=== PATIENT | male | born 1990 | race African-American/Black ===

== ENCOUNTER 2019-03-17 22:00 | Emergency (ER) | payer OTHER ==
[~2019-03-17] VITALS: Ht 175.3 cm; Wt 68.0 kg
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
[2019-03-17] MEDS ORDERED: HYDROCODONE/APAP 5/325MG 1 EACH TABLET PO ONE (22:30)
[2019-03-17] MEDS ORDERED: HYDROCODONE/APAP 5/325MG 1 EACH TABLET ONE (22:30)
[2019-03-17] MEDS ORDERED: OLANZAPINE 5 MG TABLET PO ONE (22:30)
[2019-03-17 22:40] LABS: BASOPHILS % (AUTO) 0.5 % (0.0-2.0); EOSINOPHILS % (AUTO) 1.5 % (0.0-6.0); HEMATOCRIT 42 % (39-51); HEMOGLOBIN 14.2 g/dL (13.5-17.5); LYMPHOCYTES % (AUTO) 21.6 % (20.0-44.0); MEAN CORPUSCULAR HGB CONC 34 g/dl (31.0-36.0); MEAN CORPUSCULAR VOLUME 90 fL (80-96); MONOCYTES # (AUTO) 0.4 /CMM (0.1-1.30); MONOCYTES % (AUTO) 4.1 % (2.0-12.0); NEUTROPHILS # (AUTO) 6.7 /CMM (1.8-8.9); NEUTROPHILS % (AUTO) 72.3 % (43.0-81.0); PLATELET COUNT (AUTO) 229 /CMM (150-450); WHITE BLOOD COUNT (AUTO) 9.2 K/uL (4.3-11.0)
[2019-03-17] MEDS ORDERED: OLANZAPINE 5 MG TABLET ONE (22:52)
[2019-03-17 22:53] LABS: CALCIUM, SERUM 8.2 mg/dL (8.5-10.1); CREATININE 0.9 mg/dL (0.6-1.3); POTASSIUM 3.7 mmol/L (3.5-5.1)
[2019-03-17 22:58] LABS: ALBUMIN 3.6 g/dL (3.4-5.0); BILIRUBIN,DIRECT 0.1 mg/dL (0.0-0.2); BILIRUBIN,TOTAL 0.6 mg/dL (0.2-1.0); TOTAL PROTEIN, SERUM 6.9 g/dL (6.4-8.2)
[2019-03-17 22:59] LABS: SALICYLATE 1.2 mg/dL (2.8-20.0)
[2019-03-17 23:23] LABS: APPEARANCE,URINE Clear (CLEAR); BILIRUBIN,URINE Negative (NEGATIVE); BLOOD, URINE Negative Ery/uL (NEGATIVE); COLOR,URINE Yellow (YELLOW); KETONES,URINE Negative (NEGATIVE); LEUKOCYTE ESTERASE ,URINE Negative (NEGATIVE); NITRITE, URINE Negative (NEGATIVE); PH,URINE 5.5 (5.0-8.0); PROTEIN,URINE Trace mg/dl (NEGATIVE); UGLUCOSE Negative (NEGATIVE); UROBILINOGEN,URINE 0.2 EU/dL (0.2)
[2019-03-17 23:44] LABS: BACTERIA,URINE Rare /HPF (None Seen); RBC,URINE 0-2 /HPF (0-2); SQUAMOUS EPITHELIAL CELL,UR Rare /HPF (None Seen); WBC,URINE 0-2 /HPF (0-3)
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
[2019-03-18] MEDS ORDERED: BACI/NEOM/POLY B OINT PKT 1 UDPKT PACKET TP ONE (00:30)
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
[2019-03-18 00:51] VITALS: BP 119/75
== END 2019-03-18 01:03 ==
LOC: ER 22:02
DX: S01.21XA Laceration without foreign body of nose, initial encounter (principal); S60.221A Contusion of right hand, initial encounter; F10.129 Alcohol abuse with intoxication, unspecified; F15.10 Other stimulant abuse, uncomplicated; R45.851 Suicidal ideations; F17.200 Nicotine dependence, unspecified, uncomplicated; F12.10 Cannabis abuse, uncomplicated; Y90.6 Blood alcohol level of 120-199 mg/100 ml; Z71.6 Tobacco abuse counseling; Z59.0 Homelessness; Y08.89XA Assault by other specified means, initial encounter; Y93.89 Activity, other specified; Y92.89 Other specified places as the place of occurrence of the external cause; Y99.8 Other external cause status
CPT/HCPCS: 36415; 73130; 80048; 80076; 80305; 80307; 80329; 81001; 85025; 99284; 99406; G0480; 81000-TC

== ENCOUNTER 2021-05-09 05:52 | Emergency (ER) | payer OTHER, MEDICAID ==
[~2021-05-09] VITALS: Ht 175.3 cm; Wt 68.0 kg
[2021-05-09 05:52] VITALS: BP 126/80
== END 2021-05-09 06:30 ==
LOC: ER 05:54
DX: S60.512A Abrasion of left hand, initial encounter (principal); Y08.89XA Assault by other specified means, initial encounter; Y93.89 Activity, other specified; Y92.89 Other specified places as the place of occurrence of the external cause; Y99.8 Other external cause status

== ENCOUNTER 2025-06-26 05:33 | Emergency (ER) | payer MEDICAID, OTHER | END 2025-06-26 06:16 | disposition left against medical advice (07) | LOC: ER 05:36 | DX: Z53.21 Procedure and treatment not carried out due to patient leaving prior to being seen by health care provider (principal) ==